=== PATIENT | female | born 1960 | race Caucasian/White ===

== ENCOUNTER 2019-09-28 12:31 | Outpatient (CLI) | payer MEDICARE, SELFPAY ==
--- NOTE | ~2019-09-28 | XR_ITS ---
XR hand LT min 3V DATE: 09/28/2019 13:08 INDICATION: Hand pain, generalized TECHNIQUE: 3 views COMPARISON: None FINDINGS: There is osteoarthritic change at the first carpometacarpal joint and some joint space heig ht at the triscaphe joint. No fracture, dislocation, periosteal reaction or bone destruction. IMPRESSION: Osteoarthritis at the first carpometacarpal joint and triscaphe joint Reviewed, dictated and finalized at location B. IMPRESSION: Osteoarthritis at the first carpometacarpal joint and triscaphe shaq sauceda
--- NOTE | ~2019-09-28 | XR_ITS ---
XR hand RT min 3V DATE: 09/28/2019 13:08 INDICATION: Bilateral hand pain. Hypothyroidism. TECHNIQUE: 3 views COMPARISON: None FINDINGS: Osteoarthritic changes are noted at the first carpometacarpal, triscaphe and some interphal angeal joints, most notably the distal interphalangeal joint of the second digit. No fracture, dislocation, periosteal reaction or bone destruction, chondrocalcinosis or erosive hwang e is evident. IMPRESSION: Polyarticular osteoarthritis Reviewed, dictated and finalized at location A.
== END 2019-09-28 12:32 | disposition home or self-care (01) ==
LOC: CHSIMG 12:37
PROVIDERS: PCP Internal Medicine; Visit Provider Internal Medicine
DX: M79.642 Pain in left hand (principal); M79.641 Pain in right hand; E03.9 Hypothyroidism, unspecified
CPT/HCPCS: 73130

== ENCOUNTER 2020-02-25 10:02 | Outpatient (CLI) | payer MEDICARE, SELFPAY ==
[2020-02-25 10:10] LABS: Hematocrit 40.9 % (35.0-49.0); Hemoglobin 13.8 g/dL (12.0-15.0); Mean Corpuscular HGB Conc 33.7 g/dL (32.0-36.0); Mean Corpuscular Hemoglobin 31.9 pg (27.0-31.0); Mean Corpuscular Volume 94.5 fL (78.0-102.0); Mean Platelet Volume 8.9 fl (9.2-11.8); Platelet Count Result 292 K/mm3 (150-420); Red Blood Count 4.33 M/mm3 (4.20-5.40); Red Cell Distribution Width 11.9 % (11.6-14.4); White Blood Count 7.7 K/mm3 (4.8-10.8)
[2020-02-25 10:43] LABS: Total Cells Counted 100
[2020-02-25 10:44] LABS: Band Neutrophils Percent 0 % (0-6); Basophils Absolute Manual 0.07 K/mm3 (0-0.1); Basophils Percent Manual 1 % (0-1); Eosinophils Absolute Manual 1.07 K/mm3 (0.02-0.5); Eosinophils Percent Manual 14 % (1-6); Lymphocytes Absolute Manual 2.15 K/mm3 (1.1-4.5); Lymphocytes Percent Manual 28 % (18-44); Monocytes Absolute Manual 0.61 K/mm3 (0.1-0.90); Monocytes Percent Manual 8 % (3-9); Neutrophils Absolute Manual 3.77 K/mm3 (1.7-7.2); Neutrophils Percent Manual 49 % (46-73); Platelet Estimate Adequate (Adequate)
[2020-02-25 11:12] LABS: Alanine Aminotransferase 27 U/L (14-59); Albumin Level 3.6 g/dL (3.4-5.0); Alkaline Phosphatase 59 U/L (46-116); Anion Gap 11.7 mmol/L (7-16); Aspartate Amino Transferase 29 U/L (15-37); Bilirubin,Total 0.5 mg/dL (0.00-1.00); Blood Urea Nitrogen 15 mg/dL (7-18); Calcium 8.5 mg/dL (8.5-10.1); Carbon Dioxide 27 mmol/L (21-32); Chloride 102 mmol/L (98-108); Estimated Glomerular Filt Rate > 60; Glucose 90 mg/dL (70-99); Osmolality Calculated 284 mOsm/kg (285-295); Potassium 3.7 mmol/L (3.5-5.1); Sodium 137 mmol/L (136-145); Total Protein 6.6 g/dL (6.4-8.2)
== END 2020-02-25 10:03 | disposition home or self-care (01) ==
LOC: CHSLAB 10:03
PROVIDERS: PCP Internal Medicine; Visit Provider Internal Medicine
DX: Z01.818 Encounter for other preprocedural examination (principal)
CPT/HCPCS: 36415; 80053; 85025

== ENCOUNTER 2020-04-08 15:39 | Outpatient (CLI) | payer MEDICARE, SELFPAY ==
--- NOTE | ~2020-04-08 | US_ITS ---
US breast LT complete DATE: 04/08/2020 16:09 INDICATION: Recent breast reduction surgery. Erythema and warmth of left breast. Patient is on antibi otics. TECHNIQUE: High-resolution ultrasound of the complete left breast COMPARISON: None FINDINGS: No suspicious mass or shadowing is evident. No abscess or abnormal fluid collection is dete cted. IMPRESSION: Negative examination; no abscess or abnormal fluid collection is evident BI-RADS Category 1: Negative Reviewed, dictated and finalized at Location A. Reviewed, dictated and finalized at location A. IMPRESSION: Negative examination; no abscess or abnormal fluid collection is ev ident BI-RADS Category 1: Negative
[2020-04-08 21:19] LABS: Hematocrit 38.1 % (35.0-49.0); Hemoglobin 12.2 g/dL (12.0-15.0); Mean Corpuscular Hemoglobin 30.6 pg (27.0-31.0); Mean Corpuscular Volume 95.5 fL (78.0-102.0); Mean Platelet Volume 8.9 fl (9.2-11.8); Platelet Count Result 288 K/mm3 (150-420); Red Blood Count 3.99 M/mm3 (4.20-5.40); Red Cell Distribution Width 12.2 % (11.6-14.4); White Blood Count 7.4 K/mm3 (4.8-10.8)
[2020-04-08 22:11] LABS: Alanine Aminotransferase 27 U/L (14-59); Albumin Level 3.4 g/dL (3.4-5.0); Alkaline Phosphatase 98 U/L (46-116); Anion Gap 9 mmol/L (8-16); Aspartate Amino Transferase 21 U/L (15-37); Bilirubin,Total 0.2 mg/dL (0.00-1.00); Blood Urea Nitrogen 12 mg/dL (7-18); Carbon Dioxide 25 mmol/L (21-32); Chloride 107 mmol/L (98-108); Estimated Glomerular Filt Rate > 60; Glucose 82 mg/dL (70-99); Osmolality Calculated 290 mOsm/kg (285-295); Potassium 3.7 mmol/L (3.5-5.1); Sodium 141 mmol/L (136-145); Total Protein 6.8 g/dL (6.4-8.2)
[2020-04-08 22:12] LABS: CRP < 0.5 mg/dL (0.0-0.9)
[2020-04-08 22:14] LABS: Calcium 8.7 mg/dL (8.5-10.1)
[2020-04-08 22:15] LABS: Band Neutrophils Percent 0 % (0-6); Neutrophils Absolute Manual 4.44 K/mm3 (1.7-7.2); Neutrophils Percent Manual 60 % (46-73); Total Cells Counted 100
[2020-04-08 22:16] LABS: Atypical Lymphocytes Present; Basophils Percent Manual 0 % (0-1); Eosinophils Absolute Manual 0.22 K/mm3 (0.02-0.5); Eosinophils Percent Manual 3 % (1-6); Lymphocytes Absolute Manual 2.22 K/mm3 (1.1-4.5); Lymphocytes Percent Manual 30 % (18-44); Monocytes Absolute Manual 0.51 K/mm3 (0.1-0.90); Monocytes Percent Manual 7 % (3-9); Platelet Estimate Adequate (Adequate)
== END 2020-04-08 15:40 | disposition home or self-care (01) ==
PROVIDERS: PCP Internal Medicine; Visit Provider Internal Medicine
DX: N61.0 Mastitis without abscess (principal); Z98.890 Other specified postprocedural states
CPT/HCPCS: 36415; 76641; 80053; 85025; 86140

== ENCOUNTER 2020-08-29 12:13 | Outpatient (CLI) | payer MEDICARE, SELFPAY ==
[2020-08-29 12:35] LABS: Basophils Absolute Auto 0.08 K/mm3 (0.00-0.10); Basophils Percent Auto 1.1 % (0.0-1.0); Eosinophils Absolute Auto 0.32 K/mm3 (0.02-0.50); Eosinophils Percent Auto 4.4 % (1.0-6.0); Hematocrit 39.1 % (35.0-49.0); Hemoglobin 12.9 g/dL (12.0-15.0); Immature Granulocyte Absolute 0.06 K/mm3 (0.00-0.00); Immature Granulocyte Percent A 0.8 % (0.0-0.0); Lymphocytes Absolute Auto 1.83 K/mm3 (1.10-4.50); Lymphocytes Percent Auto 25.2 % (18.0-42.0); Mean Corpuscular Hemoglobin 31.7 pg (27.0-31.0); Mean Corpuscular Volume 96.1 fL (78.0-102.0); Mean Platelet Volume 8.9 fl (9.2-11.8); Monocytes Absolute Auto 0.44 K/mm3 (0.10-0.90); Monocytes Percent Auto 6.1 % (2.0-11.0); Neutrophils Absolute Auto 4.5 K/mm3 (1.7-7.2); Neutrophils Percent Auto 62.4 % (50.0-70.0); Platelet Count Result 341 K/mm3 (150-420); Red Blood Count 4.07 M/mm3 (4.20-5.40); White Blood Count 7.3 K/mm3 (4.8-10.8)
[2020-08-29 12:46] LABS: INR 0.9; Partial Thromboplastin Time 28.3 SEC (23.90-30.70); Prothrombin Time 9.6 Seconds (9.50-12.10)
[2020-08-29 13:00] LABS: Alanine Aminotransferase 28 U/L (14-59); Albumin Level 3.5 g/dL (3.4-5.0); Alkaline Phosphatase 71 U/L (46-116); Anion Gap 6 mmol/L (8-16); Aspartate Amino Transferase 19 U/L (15-37); Bilirubin,Total 0.2 mg/dL (0.00-1.00); Blood Urea Nitrogen 14 mg/dL (7-18); Calcium 8.8 mg/dL (8.5-10.1); Carbon Dioxide 31 mmol/L (21-32); Chloride 103 mmol/L (98-108); Estimated Glomerular Filt Rate > 60; Free T3 2.46 pg/mL (2.18-3.98); Free T4 Free Thyroxine 0.83 ng/dL (0.76-1.46); Glucose 98 mg/dL (70-99); Osmolality Calculated 290 mOsm/kg (285-295); Sodium 140 mmol/L (136-145); Thyroid Stimulating Hormone 1.35 uIU/mL (0.36-3.74); Total Protein 7.1 g/dL (6.4-8.2)
[2020-08-29 13:05] LABS: CRP < 0.2 mg/dL (0.0-0.9)
[2020-08-29 23:24] LABS: SARS-CoV-2 RNA PCR Negative
== END 2020-08-29 12:14 | disposition home or self-care (01) ==
LOC: CHSLAB 12:17
PROVIDERS: PCP Internal Medicine; Visit Provider Internal Medicine
DX: R53.83 Other fatigue (principal); T14.8XXA Other injury of unspecified body region, initial encounter; E03.9 Hypothyroidism, unspecified; Z20.822 Contact with and (suspected) exposure to COVID-19
CPT/HCPCS: 36415; 80053; 84439; 84443; 84481; 85025; 85610; 85730; 86140; 86769; C9803; U0003; U0005

== ENCOUNTER 2021-01-07 09:24 | Outpatient (CLI) | payer MEDICARE, SELFPAY ==
--- NOTE | 2021-01-07 10:05 | PC.NURSE ---
Patient here for dressing change to left breast. Patient tolerated fair. Denies any questions at discharge. Patient left ambulatory.
== END 2021-01-07 09:25 | disposition home or self-care (01) ==
LOC: CHSLAB 09:26 → CHSTREATRM 09:28
PROVIDERS: PCP Internal Medicine; Visit Provider Internal Medicine
DX: N61.1 Abscess of the breast and nipple (principal)
CPT/HCPCS: 99211; G0463

== ENCOUNTER 2021-01-08 10:14 | Outpatient (CLI) | payer MEDICARE, SELFPAY ==
--- NOTE | 2021-01-08 10:50 | PC.NURSE ---
Patient here for dressing change to left breast. Patient tolerated dressing change well. Patient denies any questions about procedure at discharge, left ambulatory.
== END 2021-01-08 10:15 | disposition home or self-care (01) ==
LOC: CHSLAB 10:17 → CHSTREATRM 10:20
PROVIDERS: PCP Internal Medicine; Visit Provider Internal Medicine
DX: N61.1 Abscess of the breast and nipple (principal)
CPT/HCPCS: 99211; G0463

== ENCOUNTER 2021-01-16 12:09 | Outpatient (CLI) | payer MEDICARE, SELFPAY ==
--- NOTE | ~2021-01-16 | XR_ITS ---
EXAMINATION: XR_CERV2-3V_CR EXAM DATE: 01/16/2021 12:51 INDICATION: Neck pain. TECHNIQUE: Cervical spine frontal, lateral, lateral swimmers, and open-mouth odontoid projections. There is no prior study for comparison. FINDINGS: There is mild to moderate disc disease C5-C7, mild at C4-5. The vertebral body and disc he ights are otherwise well maintained. The vertebral bodies are aligned in the AP dimension. The odonto id process is intact. The lateral masses of C1 line up with C2. Prevertebral soft tissue and pre-den s space are within normal limits. Evidence of mild mid cervical uncovertebral joint disease. Mild to moderate cervical facet arthropathy. IMPRESSION: Mild to moderate cervical spondylosis Reviewed, dictated and finalized at location A.
--- NOTE | ~2021-01-16 | XR_ITS ---
EXAMINATION: XR thoracic spine 3V EXAM DATE: 01/16/2021 12:52 INDICATION: Mid back pain. TECHNIQUE: Frontal and lateral projections of the thoracic spine as well as lateral swimmers projecti on of the upper thoracic spine for interpretation. There is no prior study for comparison. FINDINGS: Large bridging endplate osteophytes at T9-10, small at mid thoracic levels. Mild to modera te mid thoracic disc disease. Mild thoracolumbar curvature. There are no acute fractures identified. There are no osteoblastic or osteolytic lesions identified. Paraspinal soft tissue is unremarkable. P robably mild diffuse thoracic facet arthropathy. IMPRESSION: Mild to moderate mid thoracic disc disease. Reviewed, dictated and finalized at location A.
== END 2021-01-16 12:10 | disposition home or self-care (01) ==
LOC: CHSIMG 12:11
PROVIDERS: PCP Internal Medicine; Visit Provider Internal Medicine
DX: M54.2 Cervicalgia (principal); M54.9 Dorsalgia, unspecified
CPT/HCPCS: 72040; 72072

== ENCOUNTER 2021-01-26 09:19 | Outpatient (RCR) | payer MEDICARE, SELFPAY ==
--- NOTE | 2021-01-16 10:30 | PC.NURSE ---
Here for dressing change
--- NOTE | 2021-01-16 10:45 | PC.NURSE ---
discharge to home ambulatory, no questions voiced, to see doctor today and surgeon tomorrow
--- NOTE | 2021-01-23 11:55 | PC.NURSE ---
Presents for dressing change
--- NOTE | 2021-01-23 12:07 | PC.NURSE ---
dressing change completed and ambulatory upon discharge to home
== END 2021-04-10 23:59 | disposition home or self-care (01) ==
LOC: CHSTREATRM 09:19
PROVIDERS: PCP Internal Medicine; Visit Provider Internal Medicine
DX: N61.1 Abscess of the breast and nipple (principal)
CPT/HCPCS: 99211; G0463

== ENCOUNTER 2022-04-16 12:04 | Outpatient (CLI) | payer MEDICARE, SELFPAY ==
[2022-04-16 12:23] LABS: Basophils Absolute Auto 0.07 K/mm3 (0.00-0.10); Basophils Percent Auto 0.9 % (0.0-1.0); Eosinophils Absolute Auto 0.15 K/mm3 (0.02-0.50); Eosinophils Percent Auto 1.8 % (1.0-6.0); Hematocrit 38.3 % (35.0-49.0); Hemoglobin 12.8 g/dL (12.0-15.0); Immature Granulocyte Absolute 0.04 K/mm3 (0.00-0.00); Immature Granulocyte Percent A 0.5 % (0.0-0.0); Lymphocytes Absolute Auto 2.34 K/mm3 (1.10-4.50); Lymphocytes Percent Auto 28.8 % (18.0-42.0); Mean Corpuscular HGB Conc 33.4 g/dL (32.0-36.0); Mean Corpuscular Hemoglobin 31.1 pg (27.0-31.0); Mean Corpuscular Volume 93.2 fL (78.0-102.0); Mean Platelet Volume 9.4 fl (9.2-11.8); Monocytes Absolute Auto 0.52 K/mm3 (0.10-0.90); Monocytes Percent Auto 6.4 % (2.0-11.0); Neutrophils Percent Auto 61.6 % (50.0-70.0); Platelet Count Result 331 K/mm3 (150-420); Red Blood Count 4.11 M/mm3 (4.20-5.40); Red Cell Distribution Width 12.1 % (11.6-14.4); White Blood Count 8.1 K/mm3 (4.8-10.8)
[2022-04-16 12:59] LABS: Alanine Aminotransferase 25 U/L (14-59); Albumin Level 3.4 g/dL (3.4-5.0); Alkaline Phosphatase 84 U/L (46-116); Amylase 61 U/L (25-115); Anion Gap 8 mmol/L (8-16); Aspartate Amino Transferase 23 U/L (15-37); Bilirubin,Total 0.3 mg/dL (0.00-1.00); Blood Urea Nitrogen 8 mg/dL (7-18); CRP 5.1 mg/dL (0.0-0.9); Calcium 8.9 mg/dL (8.5-10.1); Carbon Dioxide 28 mmol/L (21-32); Chloride 103 mmol/L (98-108); Estimated Glomerular Filt Rate > 60; Free T4 Free Thyroxine 1.15 ng/dL (0.76-1.46); Glucose 99 mg/dL (70-99); Lipase 82 U/L (73-393); Osmolality Calculated 286 mOsm/kg (285-295); Sodium 139 mmol/L (136-145); Thyroid Stimulating Hormone 0.83 uIU/mL (0.36-3.74); Total Protein 7.1 g/dL (6.4-8.2)
[2022-04-19 09:31] LABS: Testosterone Total 10 ng/dL (2-45)
[2022-04-19 13:28] LABS: FSH 27.5 mIU/mL (***); LH 22.2 mIU/mL (***)
== END 2022-04-16 12:05 | disposition home or self-care (01) ==
LOC: CHSLAB 12:07
PROVIDERS: PCP Internal Medicine; Visit Provider Nurse Practitioner Family
DX: E03.9 Hypothyroidism, unspecified (principal); R10.9 Unspecified abdominal pain; R31.9 Hematuria, unspecified; L65.9 Nonscarring hair loss, unspecified
CPT/HCPCS: 36415; 80053; 82150; 82672; 83001; 83002; 83690; 84403; 84439; 84443; 85025; 86140

== ENCOUNTER 2022-04-24 10:02 | Outpatient (CLI) | payer MEDICARE, SELFPAY ==
--- NOTE | ~2022-04-24 | CT_ITS ---
EXAMINATION: CT abdomen pelvis w con DATE: 04/24/2022 10:42 INDICATION: LLQ/MID ABD PAIN . No personal history of cancer. TECHNIQUE: Computed tomography (CT) of the abdomen and pelvis was performed with 100 mL Omnipaque-350 intravenous contrast. Automated exposure control and iterative reconstruction technique were employe d. The dose-length product was 440.65 mGy-cm. COMPARISON: None. FINDINGS: Lower thorax: 4 mm left lower lobe pulmonary nodule, no additional follow-up recommended. Liver: Normal. Biliary/Gallbladder: Gallbladder is normal. No bile duct dilation. Pancreas: No mass or duct dilation. Punctate calcification in the pancreatic tail possibly from prior bout of pancreatitis or representing a vascular calcification. Spleen: Normal. Adrenals: 2.5 cm right adrenal mass. Kidneys: No mass, stone, or hydronephrosis. GI tract: Distal esophageal and gastric wall edema as can be seen with esophagitis/gastritis. No smal l or large bowel dilation. Normal appendix. Diverticulosis. Focal wall thickening and pericolonic inf lammatory change in 2 separate sections of the colon involving the distal descending colon and the mi d sigmoid colon. Mesentery/Peritoneum: No ascites, mass, or free air. Retroperitoneum: No mass. Atherosclerotic abdominal aortic and/or arterial calcifications. Pelvis: Uterus surgically absent. Bladder wall thickening. Soft Tissues: Soft tissues and body wall unremarkable. Bones: No acute osseous finding. IMPRESSION: Two sites segmental of pericolonic inflammatory change, may represent multifocal diverticulitis. Cons ider follow-up imaging or colonoscopy following the acute phase to ensure resolution. Possible cystit is, correlate with urinalysis. Indeterminate 2.5 cm right adrenal mass, recommend adrenal CT for furt her evaluation. Results reported telephonically to Dr. Garcia by Dr. Abarca at 3:55 PM on 04/24/2022. Reviewed, dictated and finalized at location K. IMPRESSION: Two sites segmental of pericolonic inflammatory change, may represent multifoca l diverticulitis. Consider follow-up imaging or colonoscopy following the acute phase to ensure resolution. Possible cystitis, correlate with urinalysis. Inde terminate 2.5 cm right adrenal mass, recommend adrenal CT for further evaluatio n. Results reported telephonically to Dr. Garcia by Dr. Abarca at 3:55 PM on 2021.
== END 2022-04-24 10:03 | disposition home or self-care (01) ==
LOC: CHSIMG 10:04
PROVIDERS: PCP Internal Medicine; Visit Provider Internal Medicine
DX: R10.9 Unspecified abdominal pain (principal)
CPT/HCPCS: 74177; Q9967

== ENCOUNTER 2022-04-25 10:02 | Outpatient (CLI) | payer MEDICARE, SELFPAY ==
--- NOTE | 2022-04-25 11:00 | NEURO_ITS ---
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 # Normal needle exam. Nerve Conduction Studies Anti Sensory Summary Table Stim Site NR Peak (ms) P-T Amp (?V) Site1 Site2 Delta-P (ms) Dist (cm) Joey (m/s) Left Median Anti Sensory (2-3nd Digit) Wrist 3.9 96.6 Wrist 2-3nd Digit 3.9 14.0 36 Wrist 4.0 59.3 Wrist 2-3nd Digit 3.9 14.0 36 Right Median Anti Sensory (2-3nd Digit) Wrist 4.1 47.4 Wrist 2-3nd Digit 4.1 14.0 34 Wrist 4.2 47.2 Wrist 2-3nd Digit 4.1 14.0 34 Left Radial Anti Sensory (Base 1st Digit) Wrist 2.6 29.0 Wrist Base 1st Digit 2.6 0.0 Right Radial Anti Sensory (Base 1st Digit) Wrist 2.6 23.6 Wrist Base 1st Digit 2.6 0.0 Left Ulnar Anti Sensory (5th Digit) Wrist 3.0 54.4 Wrist 5th Digit 3.0 14.0 47 Right Ulnar Anti Sensory (5th Digit) Wrist 3.3 78.2 Wrist 5th Digit 3.3 14.0 42 Motor Summary Table Stim Site NR Onset (ms) O-P Amp (mV) Site1 Site2 Delta-0 (ms) Dist (cm) Joey (m/s) Left Median Motor (Abd Poll Brev) Wrist 3.6 3.9 Elbow Wrist 4.8 27.0 56 Elbow 8.4 3.4 Right Median Motor (Abd Poll Brev) Wrist 3.7 5.5 Elbow Wrist 4.5 25.0 56 Elbow 8.2 4.7 Left Ulnar Motor (Abd Dig Minimi) Wrist 3.3 6.5 A Elbow Wrist 5.1 27.0 53 A Elbow 8.4 6.3 Right Ulnar Motor (Abd Dig Minimi) Wrist 4.0 4.1 A Elbow Wrist 5.3 27.0 51 A Elbow 9.3 3.5 B Elbow Wrist 3.6 19.0 53 B Elbow 7.6 3.1 F Wave Studies NR F-Lat (ms) L-R F-Lat (ms) Left Median (Mrkrs) (Abd Poll Brev) 30.73 3.86 Right Median (Mrkrs) (Abd Poll Brev) 26.88 3.86 Left Ulnar (Mrkrs) (Abd Dig Min) 28.54 0.64 Right Ulnar (Mrkrs) (Abd Dig Min) 27.89 0.64 EMG Side Muscle Nerve Root Ins Act Fibs Amp Dur Recrt Comment Right 1stDorInt Ulnar C8-T1 Nml Nml Nml Nml Nml Right Ext Indicis Radial (Post Int) C7-8 Nml Nml Nml Nml Nml Right Ext Digitorum Radial (Post Int) C7-8 Nml Nml Nml Nml Nml Right BrachioRad Radial C5-6 Nml Nml Nml Nml Nml Right PronatorTeres Median C6-7 Nml Nml Nml Nml Nml Right Abd Poll Brev Median C8-T1 Nml Nml Nml Nml Nml Left 1stDorInt Ulnar C8-T1 Nml Nml Nml Nml Nml Left Ext Indicis Radial (Post Int) C7-8 Nml Nml Nml Nml Nml Left Ext Digitorum Radial (Post Int) C7-8 Nml Nml Nml Nml Nml Left BrachioRad Radial C5-6 Nml Nml Nml Nml Nml Left PronatorTeres Median C6-7 Nml Nml Nml Nml Nml Left Abd Poll Brev Median C8-T1 Nml Nml Nml Nml Nml MTDD
== END 2022-04-25 10:03 | disposition home or self-care (01) ==
LOC: ANHNEURO 10:04
PROVIDERS: PCP Internal Medicine; Visit Provider Internal Medicine
DX: R20.2 Paresthesia of skin (principal); G56.21 Lesion of ulnar nerve, right upper limb
CPT/HCPCS: 95886; 95911

== ENCOUNTER → 2022-04-25 11:27 | Outpatient (CLI) | payer MEDICARE, SELFPAY ==
--- NOTE | ~2022-04-25 | US_ITS ---
EXAMINATION: US pelvic complete DATE: 04/25/2022 12:35 INDICATION: Left pelvic pain Comparison:Left pelvic pain TECHNIQUE: Multiple transabdominal and endovaginal sonographic images of the pelvis performed. FINDINGS: The uterus is not visualized. There is a right adnexal cyst measuring 1.9 x 1.8 x 1.7 cm. There is no free fluid in the pelvis. Th ere are no abnormal masses seen on either side. IMPRESSION: 1. Right adnexal cyst measuring 1.9 cm, possibly ovarian. Reviewed, dictated and finalized at location B.
--- NOTE | ~2022-04-25 | US_ITS ---
US abdomen complete EXAMINATION: US Abdomen Complete INDICATION: Abdomen pain PROCEDURE: Realtime High Resolution abdomen ultrasound. COMPARISON: No prior studies for comparison FINDINGS: Gallbladder within normal limits. No gallstones, pericholecystic fluid, gallbladder wall t hickening or biliary dilatation. Common bile duct measures 4 mm. Liver echotexture within normal limits without focal mass. Adjacent to the liver margin there is a hy poechoic mass measuring 2.3 x 2.1 x 2 cm, likely corresponding to adrenal mass seen on CT examination dated 04/24/2022. Pancreas within normal limits. Pancreatic tail is obscured by bowel gas. Spleen is unremarkeable. Renal echotexture is within normal limits bilaterally without hydronephrosis, conto ur deforming mass or renal stone. Right kidney measures 10.3 cm. Left kidney measures 10.1 cm. Visualized aspects of the aorta and IVC are within normal limits. Portal vein is patent. No sonograph ic Loya's sign indicated by the technologist. IMPRESSION: 1: Hypoechoic mass adjacent to the liver margin measuring 2.3 cm, likely adrenal mass seen on CT exam ination. Reviewed, dictated and finalized at location B. IMPRESSION: 1: Hypoechoic mass adjacent to the liver margin measuring 2.3 cm, likely adrena l mass seen on CT examination.
== END ==
PROVIDERS: PCP Internal Medicine; Visit Provider Internal Medicine
DX: R10.9 Unspecified abdominal pain (principal); R93.89 Abnormal findings on diagnostic imaging of other specified body structures
CPT/HCPCS: 76700; 76856

== ENCOUNTER 2022-05-02 12:14 | Outpatient (CLI) | payer MEDICARE, SELFPAY ==
[2022-05-02 12:27] LABS: Basophils Absolute Auto 0.06 K/mm3 (0.00-0.10); Basophils Percent Auto 0.6 % (0.0-1.0); Eosinophils Absolute Auto 0.18 K/mm3 (0.02-0.50); Eosinophils Percent Auto 1.7 % (1.0-6.0); Hematocrit 40.4 % (35.0-49.0); Hemoglobin 13.4 g/dL (12.0-15.0); Immature Granulocyte Absolute 0.04 K/mm3 (0.00-0.00); Immature Granulocyte Percent A 0.4 % (0.0-0.0); Lymphocytes Absolute Auto 2.05 K/mm3 (1.10-4.50); Lymphocytes Percent Auto 19.2 % (18.0-42.0); Mean Corpuscular HGB Conc 33.2 g/dL (32.0-36.0); Mean Corpuscular Hemoglobin 30.9 pg (27.0-31.0); Mean Corpuscular Volume 93.3 fL (78.0-102.0); Mean Platelet Volume 8.8 fl (9.2-11.8); Monocytes Absolute Auto 0.84 K/mm3 (0.10-0.90); Monocytes Percent Auto 7.9 % (2.0-11.0); Neutrophils Absolute Auto 7.5 K/mm3 (1.7-7.2); Neutrophils Percent Auto 70.2 % (50.0-70.0); Platelet Count Result 372 K/mm3 (150-420); Red Blood Count 4.33 M/mm3 (4.20-5.40); Red Cell Distribution Width 11.9 % (11.6-14.4); White Blood Count 10.7 K/mm3 (4.8-10.8)
[2022-05-05 04:25] LABS: CA-125 10 U/mL (<35)
[2022-05-06 07:32] LABS: Carcinoembryonic Antigen 0.9 ng/mL (0.0-2.4)
== END 2022-05-02 12:15 | disposition home or self-care (01) ==
LOC: CHSLAB 12:16
PROVIDERS: PCP Internal Medicine; Visit Provider Internal Medicine
DX: N83.201 Unspecified ovarian cyst, right side (principal); E27.9 Disorder of adrenal gland, unspecified; R19.04 Left lower quadrant abdominal swelling, mass and lump; Z09 Encounter for follow-up examination after completed treatment for conditions other than malignant neoplasm
CPT/HCPCS: 36415; 82378; 85025; 86304

== ENCOUNTER 2022-05-10 10:27 | Outpatient (CLI) | payer MEDICARE, SELFPAY ==
--- NOTE | ~2022-05-10 | CT_ITS ---
EXAMINATION:CT diagnostic chest w con DATE: 05/10/2022 10:59 INDICATION: Pulmonary nodule. Right adrenal mass. Shortness of breath and cough. TECHNIQUE: Computed tomography (CT) of the chest was performed with 75 mL Omnipaque 350 intravenous c ontrast. Automated exposure control and iterative reconstruction technique were employed. The dose-le ngth product (DLP) was 182.75 mGy-cm. COMPARISON: CT abdomen and pelvis 04/24/2022 FINDINGS: The lungs demonstrate minimal atelectasis. There is a 4 mm nodule in left lower lobe. No pl eural effusion. The heart size is normal. No pericardial effusion. There is a 2.5 cm mass in right ad renal gland measuring soft tissue attenuation. There is mild thoracic spondylosis. IMPRESSION: 1. 4 mm pulmonary nodule, likely benign. 2. 2.5 cm right adrenal mass. In the absence of known malignancy, this finding is likely an adenoma. Reviewed, dictated and finalized at location A.
== END 2022-05-10 10:28 | disposition home or self-care (01) ==
LOC: CHSIMG 10:28
PROVIDERS: PCP Internal Medicine; Visit Provider Internal Medicine
DX: R91.1 Solitary pulmonary nodule (principal); E27.9 Disorder of adrenal gland, unspecified
CPT/HCPCS: 71260; Q9967

== ENCOUNTER 2022-08-02 08:18 | Outpatient (CLI) | payer MEDICARE, MEDICAID, SELFPAY ==
--- NOTE | ~2022-08-02 | MMUS_ITS ---
EXAMINATION: MM diagnostic wen BI w amina, US breast LT complete HISTORY: History of left breast asked cyst from breast reduction surgery. TECHNIQUE: Additional 3-D tomosynthesis images of the breasts were performed and synthetic 2-D images were generated. CAD analysis was submitted and interpreted. High resolution complete left breast ult rasound was performed. COMPARISON: None BREAST PARENCHYMAL COMPOSITION: Breast composed of scattered areas of fibroglandular density FINDINGS: MAMMOGRAPHIC FINDINGS: There are no suspicious calcifications, architectural distortion or clustered calcifications in eithe r breast to suggest malignancy. ULTRASOUND: Complete US of all 4 quadrants of the left breast and retroareolar region was reviewed. At 8:00, 8 cm from the nipple there is an oval isoechoic mass measuring 9 mm which may represent a focal lipoma or fat necrosis. No corresponding mammographic finding is seen, likely benign. At 8:00, 8 cm from the n ipple there is an oval hypoechoic 5 mm mass with parallel orientation, no significant posterior featu res and no internal vascularity. The margins are circumscribed. No corresponding mammographic abnorma lity is seen. IMPRESSION: 1. Probable benign left breast masses seen on ultrasound without mammographic correlate. 2. Recommend 6 month follow-up Limited left breast ultrasound. BI-RADS category 3, probably benign findings. Reviewed, dictated and finalized at location A. [employer]ESS [employer]ER IMPRESSION: 1. Probable benign left breast masses seen on ultrasound without mammographic c orrelate. 2. Recommend 6 month follow-up Limited left breast ultrasound. BI-RADS category 3, probably benign findings.
== END 2022-08-02 08:19 | disposition home or self-care (01) ==
LOC: CHSIMG 08:19
PROVIDERS: PCP Internal Medicine; Visit Provider Internal Medicine
DX: N64.4 Mastodynia (principal)
CPT/HCPCS: 76641; 77062; 77066; G0279

== ENCOUNTER 2024-06-15 09:55 | Outpatient (CLI) | payer OTHER, SELFPAY ==
--- NOTE | ~2024-06-15 | XR_ITS ---
XR chest 2V Ordering provider: Warren Garcia MD History: 64 years Female with . Congestion X 6 weeks, RT side chest pain, SOB, Cough . Comparison: None. FINDINGS: MEDIASTINUM: The cardiac silhouette is not enlarged. LUNGS: No infiltrates, effusions or pneumothorax. OTHER: No free air under the diaphragm. Degenerative changes of the spine. IMPRESSION: No acute cardiopulmonary pathology. Reviewed, dictated and finalized at location A. UCE CUTTER
--- NOTE | ~2024-06-15 | XR_ITS ---
3 VIEWS PARANASAL SINUSES Ordering provider: Warren Garcia MD History: . Persistent sinusitis X 6 weeks, Hx thyroid tumors . Comparison: None. FINDINGS: BONES: No acute fracture as visualized. PARANASAL SINUSES: Well aerated. No air fluid levels. SOFT TISSUES: Normal. IMPRESSION: NO EVIDENCE OF SINUS DISEASE. CONSIDER FOLLOW UP CT PARANASAL SINUSES IF THERE IS CONTINUED CONCERN. Reviewed, dictated and finalized at location A. E CAPTAIN
[2024-06-15 10:18] LABS: Hematocrit 40.6 % (35.0-49.0); Mean Corpuscular HGB Conc 34.5 g/dL (32-36); Mean Corpuscular Hemoglobin 31.4 pg (27.0-31.0); Mean Platelet Volume 8.7 fl (9.2-11.8); Platelet Count Result 376 K/mm3 (150-420); Red Blood Count 4.46 M/mm3 (4.20-5.40); Red Cell Distribution Width 12.5 % (11.6-14.4); White Blood Count 11.8 K/mm3 (4.8-10.8)
[2024-06-15 10:30] LABS: Add Urine Microscopic? YES; Appearance Urine Clear (Clear); Bilirubin Urine Negative (Negative); Blood Urine 2+ (Negative); Color Urine Light Yellow (Yellow); Glucose Urine UA Negative (Negative); Ketones Urine Negative (Negative); Leukocyte Esterase Ur Negative (Negative); Nitrate Urine Negative (Negative); Protein Urine Negative (Negative); Specific Grav Ur 1.025 (1.010-1.020); Urobilinogen Urine 0.2 mg/dL (0.2-1.0); pH Urine 5.5 (5.0-8.0)
[2024-06-15 10:57] LABS: Bacteria Urine 2+ /hpf; Squamous Epithelial Cell Urine Few /hpf (Few); WBC Urine 0-3 /hpf (0-3)
[2024-06-15 11:15] LABS: Alanine Aminotransferase 28 U/L (14-59); Albumin Level 3.2 g/dL (3.4-5.0); Alkaline Phosphatase 103 U/L (46-116); Anion Gap 9 mmol/L (4-12); Aspartate Amino Transferase 15 U/L (15-37); Bilirubin,Total 0.2 mg/dL (0.00-1.00); Blood Urea Nitrogen 19 mg/dL (7-18); Calcium 8.9 mg/dL (8.5-10.1); Carbon Dioxide 26 mmol/L (21-32); Chloride 104 mmol/L (98-108); Estimated Glomerular Filt Rate > 60; Glucose 88 mg/dL (70-99); Osmolality Calculated 289 mOsm/kg (285-295); Potassium 4.2 mmol/L (3.5-5.1); Sodium 139 mmol/L (136-145); Total Protein 6.5 g/dL (6.4-8.2)
[2024-06-15 11:18] LABS: CRP < 0.5 mg/dL (0.0-0.9)
[2024-06-15 11:21] LABS: Erythrocyte Sedimentation Rate 16 mm/hr (0-20)
[2024-06-16 08:38] LABS: Immunoglobulin A 207 mg/dL (70-320); Immunoglobulin G 708 mg/dL (600-1540); Immunoglobulin M 94 mg/dL (50-300)
[2024-06-19 22:23] LABS: Legionella pneumophila Ag Ur NOT DETECTED
== END 2024-06-15 09:56 | disposition home or self-care (01) ==
LOC: CHSLAB 10:00
PROVIDERS: PCP Internal Medicine; Visit Provider Internal Medicine
DX: J32.9 Chronic sinusitis, unspecified (principal); R19.7 Diarrhea, unspecified; R05.9 Cough, unspecified
CPT/HCPCS: 36415; 70220; 71046; 80053; 81001; 82784; 85027; 85652; 86140; 86738; 87449; 87486

== ENCOUNTER 2024-06-16 11:21 | Outpatient (CLI) | payer OTHER, SELFPAY ==
--- NOTE | 2024-06-17 13:58 | WPDHOLTEREM ---
Holter/Event Monitor Holter/Event Monitor Date of procedure: 06/16/24 Holter/Event Procedure: 24 Hr Holter Monitor Indications: Palpitations Conclusion: 1. 24 hour holter monitor on 06/16/24. 2. Underlying rhythm is sinus rhythm. HR range 49-129 bpm; average HR 72 bpm. HR at 49 bpm was at 09:51. 3. There are 27 premature supraventricular complexes. No supraventricular tachycardia. 4. There are 386 premature ventricular complexes and 2 ventricular couplets. No ventricular tachycardia. 5. No significant pauses greater than 2 seconds. 6. No symptoms available for correlation.
[2024-06-17 14:14] LABS: Toxigenic C. Diff NEGATIVE (NEGATIVE)
[2024-06-19 11:19] LABS: Trichrome Ova and Parasites STATUS: FINAL
== END 2024-06-16 11:22 | disposition home or self-care (01) ==
LOC: CHSCARD 11:24
PROVIDERS: PCP Internal Medicine; Visit Provider Internal Medicine
DX: J32.9 Chronic sinusitis, unspecified (principal); R19.7 Diarrhea, unspecified; R05.9 Cough, unspecified; R00.2 Palpitations
CPT/HCPCS: 87045; 87177; 87209; 87427; 87449; 87493; 93005; 93225; 93226

== ENCOUNTER 2025-04-20 12:58 | Outpatient (CLI) | payer MEDICARE, MEDICAID, SELFPAY ==
--- OUTSIDE RECORDS SUMMARY | 2025-04-20 13:10 | XMS_ITS | Clinical Summary ---
Author Organization [address] Address [facility] [place] [address] Care Team Providers Care Answering Service Telephone Operator Name Role Phone Warren Garcia MD Primary Care Provider [phone] Warren Garcia MD Unavailable [phone] Allergies Active Allergy Reactions Criticality Noted Date Comments Cefaclor Other (See comments) Low 06/05/2018 Tendons rupture Ciprofloxacin Other (See comments) Low 06/11/2019 Levofloxacin Other (See comments) Low 06/11/2019 Other Other (See comments) Low 06/05/2018 Fluoroquinolones- tendon ruptures Penicillins Unknown,Rash,Urticaria Medium 03/05/2018 No issues with Keflex Penicillins Hives Medium 04/14/2025 Quinolones Other (See comments) Low 03/05/2018 unknown unknown unknown unknown Medications levothyroxine (SYNTHROID, LEVOTHROID) 25 mcg tablet Take 50 mcg by mouth snuff blender before breakfast Active estradiol (VIVELLE-DOT) 0.0375 mg/[address] 1 patch on the skin 2 (two) times a week. Active FIRST-PROGESTER ONE VGS 50 VAGLIndications :cream Insert into the vagina. Active ALPRAZolam (XANAX) 1 mg tablet Take 1 mg by mouth 2 (two) times a day. Active multivitamin capsule Take 1 capsule by mouth daily. Active b complex vitamins tablet Take 1 tablet by mouth daily. Active cholecalciferol (VITAMIN D-3) 5,000 unit tablet Active ascorbic acid (VITAMIN C) 1,000 mg tabletIndicatio ns:2000 units Take 1,000 mg by mouth daily. Active biotin 10,000 mcg capsule Take by mouth. Act nancy nitrofurantoin (MACRODANTIN) 100 mg capsule Take 100 mg by mouth 4 (four) times a day. Active zolpidem (AMBIEN) 10 mg tablet zolpidem 10 mg tablet Active triamcinolone (KENALOG) 0.5 % cream triamcinolone acetonide 0.5 % topical cream Active tamsulosin (FLOMAX) 0.4 mg extended release capsule tamsulosin 0.4 mg capsule Active acyclovir (ZOVIRAX) 800 mg tablet acyclovir 800 mg tablet Active azithromycin (ZITHROMAX) 250 mg tablet azithromycin 250 mg tablet Active cephalexin (KEFLEX) 500 mg capsule cephalexin 500 mg capsule Active FLUoxetine (PROzac) 10 mg tablet/capsule fluoxetine 10 mg capsule Active HYDROmorphone (DILAUDID) 2 mg tablet hydromorphone 2 mg tablet Active metoprolol (LOPRESSOR) 50 mg tablet metoprolol tartrate 50 mg tablet Active nitrofurantoin monohydrate (MACROBID) 100 mg capsule nitrofurantoin monohydrate/macroc rystals 100 mg capsule Active ofloxacin (FLOXIN) 0.3 % otic solution ofloxacin 0.3 % ear drops INSTILL 10 DROPS (1.5 MG) INTO AFFECTED EAR(S) BY OTIC ROUTE 2 TIMES PER DAY Active phentermine (ADIPEX-P) 37.5 mg tablet daily Active furosemide (LASIX) 20 mg tablet 05/30/20 21 Active spironolactone (ALDACTONE) 25 mg tablet 05/06/20 21 Active nystatin 100,000 unit/mL suspension 05/07/20 22 Active Active Problems Problem Noted Date Diagnosed Date Thyroid nodule 06/12/2019 Generalized anxiety disorder 10/18/2017 Encounters Date Type Department Care Team Description 04/15/2025 Telephone [facility] Medicine Gastroenterology [address] [facility] 12[address] [place] [address] [place] [id number] Myranda Baca CNA Referral status 04/14/2025 9:54 AM CDT - 04/14/2025 11:59 PM CDT Hospital Encounter [facility] ([facility] [address] [place] [address] Discharge Disposition: Discharge to home or self care 04/14/2025 9:54 AM CDT - 04/14/2025 11:59 PM CDT Hospital Encounter [facility] ([facility]) [address] [place] [address] Thyroid nodule; Malignant neoplasm of thyroid gland (HCC) Discharge Disposition: Discharge to home or self care 04/13/2025 Telephone [facility] Medicine Surgery [address] [facility] [address] [place] [address] Pako Mckinnon MD Patient issue/concern from Last 3 Months Surgical History Surgery Date Site/Laterality Comments ABLATION heart x2 HYSTERECTOMY MANDIBLE SURGERY tumor bone x 2 ABDOMINOPLASTY Medical History Medical History Date Comments Heart disease Arthritis Lupus Family History Medical History Relation Name Comments No Known Problems Mother Relation Name Status Comments Mother Social History Tobacco Use Types Packs/Day Years Used Date Smoking Tobacco: Never Smokeless Tobacco: Never Tobacco Cessation:Counseling Given: Not Answered Comments No Sex and Gender Information Value Date Recorded Sex Assigned at Not on file Legal Sex Female 10:01 AM CDT Gender Identity Not on file Sexual Orientation Not on file Obstetrics History Last Filed Vital Signs Vital Sign Reading Time Taken Comments Blood Pressure 137/94 07/03/2022 11:23 AM DENTAL DIRECTOR Pulse 76 07/03/2022 11:23 AM DENTAL DIRECTOR Temperature - - Respiratory Rate - - Oxygen Saturation 98% 07/03/2022 11:23 AM DENTAL DIRECTOR Inhaled Oxygen Concentration - - Weight 81.4 kg (179 lb 8 oz) 04/14/2025 10:28 AM CDT Height 162.6 cm (5' 4) 07/03/2022 11:23 AM DENTAL DIRECTOR Body Mass Index 30.81 07/03/2022 11:23 AM DENTAL DIRECTOR Plan of Treatment Health Maintenance Due Date Last Done Comments Colon Cancer Screening-Colonoscopy 1962 Depression Screening 1962 Hepatitis C Screening 1962 DTaP/Tdap/Td Vaccine (1 - Tdap) 1973 Hepatitis B Screening 1980 Regular Well Visit/Exam 18-64 1980 Zoster Vaccine (1 of 2) 2012 Covid-19 Vaccine (2 - 2024- season) 2025 06/27/2021 Influenza Vaccine (#1) 2025 Breast Cancer Screening-Mammogram 04/23/2025 04/23/2024, 04/23/2024, 03/19/2023, Additional history exists Pneumococcal vaccine <65 Aged Out No longer eligible based on patient's age to complete this topic Procedures Procedure Name Priority Date/Time Associated Diagnosis Comments PET/CT FDG SKULL TO THIGH Schedule Routine, Read Routine (OP Routine) 04/14/2025 12:39 PM CDT Thyroid nodule Malignant neoplasm of thyroid gland (HCC) from Last 3 Months Results * PET/CT FDG SKULL TO THIGH (04/14/2025 12:39 PM CDT) Anatomical Region Laterality Modality N/A Positron Emissio n Tomography (PET) 04/14/2025 3:01 PM CDT Impressions 04/14/2025 3:22 PM CDT 1. No evidence of hypermetabolic malignancy 2. Queried right thyroid nodule mass demonstrates background uptake and is likely benign. 3. Right sided adrenal adenoma. Dictated by: Celso Mullins M.D. The radiology attending physician has personally reviewed this study, and had reviewed and/or edited this written report and agrees with it. Electronically signed by: Sherry Allen MD, Ph.D Narrative 04/14/2025 3:22 PM CDT EXAMINATION: TUMOR FDG-PET/CT IMAGING DATE OF STUDY: 04/14/2025 SCANNER: [facility] N PET Vision (NV1). This is a high-resolution scanner, which can result in higher SUVs (and even detection of previously unrecognized small lesions) compared to older scanners. RADIOPHARMACEUTICAL: 17.3 mCi F-18 Fluorodeoxyglucose (FDG) i.v. Injection site: LAC HISTORY: 64 year old with no history provided other than thyroid nodule. The study is requested for initial staging. Initial treatment strategy. TECHNIQUE: The patient's fasting blood glucose level, measured by glucometer before injection of FDG, was 79 mg/dL. After intravenous administration of FDG, noncontrast CT images were obtained for attenuation correction and for fusion with emission PET images to allow for anatomical localization of PET findings. Emission PET images were then obtained. The study was interpreted on the Triductor workstation. The mean liver SUV (reported for quality assurance coordinator purposes) is 2.8. The total scanned area was skull vertex to thighs. Images of the body were obtained starting 79 minutes after injection of tracer. All reported SUVs are maximum SUVs, unless otherwise specified. COMPARISON: 05/21/2023 DESCRIPTORS OF LESION FDG AVIDITY: Minimal: <= blood pool Mild: > blood pool and <= liver Moderate: > liver and <= 2x SUVmax liver Moderate to marked: >2x SUVmax liver and <= 3x SUVmax liver Marked: > 3x SUVmax liver FINDINGS: Atrophic left thyroid gland. Nodular right thyroid gland without suspicious uptake. Scattered subcentimeter right axillary nodes with mild uptake, for example a 9 mm right axillary node with mild uptake (SUV 4.6, image 113). Below the diaphragm, there are multiple mildly FDG avid prominent retroperitoneal, periportal, and left greater than right external iliac lymph nodes. An index node is a 1.2 cm short axis left external iliac node (SUV 4.5, image 243). These are likely reactive. There is a 2.0 x 2.6 cm right adrenal nodule with moderate to marked uptake (SUV 5.4, image 162). Additional CT findings: There is wall thickening of the sigmoid colon with adjacent stranding, notably around the left inferior peritoneal reflection (image 235). There is increased intraluminal FDG avidity associated with the sigmoid colon. Evaluation for an underlying mass limited secondary to decompressed colon. Procedure Note Sherry Fernández MD PhD - 04/14/2025 EXAMINATION: TUMOR FDG-PET/CT IMAGING DATE OF STUDY: 04/14/2025 SCANNER: [facility] [employer] (NV1). This is a high-resolution scanner, which can result in higher SUVs (and even detection of previously unrecognized small lesions) compared to older scanners. RADIOPHARMACEUTICAL: 17.3 mCi F-18 Fluorodeoxyglucose (FDG) i.v. Injection site: LAC HISTORY: 64 year old with no history provided other than thyroid nodule. The study is requested for initial staging. Initial treatment strategy. TECHNIQUE: The patient's fasting blood glucose level, measured by glucometer before injection of FDG, was 79 mg/dL. After intravenous administration of FDG, noncontrast CT images were obtained for attenuation correction and for fusion with emission PET images to allow for anatomical localization of PET findings. Emission PET images were then obtained. The study was interpreted on the Triductor workstation. The mean liver SUV (reported for quality assurance coordinator purposes) is 2.8. The total scanned area was skull vertex to thighs. Images of the body were obtained starting 79 minutes after injection of tracer. All reported SUVs are maximum SUVs, unless otherwise specified. COMPARISON: 05/21/2023 DESCRIPTORS OF LESION FDG AVIDITY: Minimal: <= blood pool Mild: > blood pool and <= liver Moderate: > liver and <= 2x SUVmax liver Moderate to marked: >2x SUVmax liver and <= 3x SUVmax liver Marked: > 3x SUVmax liver FINDINGS: Atrophic left thyroid gland. Nodular right thyroid gland without suspicious uptake. Scattered subcentimeter right axillary nodes with mild uptake, for example a 9 mm right axillary node with mild uptake (SUV 4.6, image 113). Below the diaphragm, there are multiple mildly FDG avid prominent retroperitoneal, periportal, and left greater than right external iliac lymph nodes. An index node is a 1.2 cm short axis left external iliac node (SUV 4.5, image 243). These are likely reactive. There is a 2.0 x 2.6 cm right adrenal nodule with moderate to marked uptake (SUV 5.4, image 162). Additional CT findings: There is wall thickening of the sigmoid colon with adjacent stranding, notably around the left inferior peritoneal reflection (image 235). There is increased intraluminal FDG avidity associated with the sigmoid colon. Evaluation for an underlying mass limited secondary to decompressed colon. IMPRESSION: 1. No evidence of hypermetabolic malignancy 2. Queried right thyroid nodule mass demonstrates background uptake and is likely benign. 3. Right sided adrenal adenoma. Dictated by: Celso Mullins M.D. The radiology attending physician has personally reviewed this study, and had reviewed and/or edited this written report and agrees with it. Electronically signed by: Sherry Allen MD, Ph.D Warren Garcia MD IMG PET PROCEDURES Final Result from Last 3 Months Insurance MEDICARE [facility] Care Teams Answering Service Telephone Operator Relationship Specialty Start Date End Date Warren Garcia MD [address] [place] [address] PCP - General Internal Medicine 04/08/25 Warren Garcia MD [address] [place] [address] Internal Medicine 04/08/25
--- OUTSIDE RECORDS SUMMARY | 2025-04-20 13:10 | XMS_ITS | Encounter Summary ---
Author Organization [facility] Address [address] [place] [address] Phone Care Team Providers Care Legal Secretary Name Role Phone Warren Garcia MD Primary Care Provider [phone] Warren Garcia MD Unavailable [phone] Reason for Visit * Reason Onset Date Comments Patient issue/concern 04/13/2025 Encounter Details Date Type Department Care Team (Late st Contact Info) Description 04/13/2025 Telephone [facility] Medicine Surgery [address] [facility] [address] [place] [address] Pako Mckinnon MD [address] [place] [id number] Patient issue/concern Social History Tobacco Use Types Packs/Day Years Used Date Smoking Tobacco: Never Smokeless Tobacco: Never Comments No Sex and Gender Information Value Date Recorded Sex Assigned at Not on file Legal Sex Female 10:01 AM CDT Gender Identity Not on file Sexual Orientation Not on file documented as of this encounter Miscellaneous Notes * Telephone Encounter - Willis Balderas - 04/13/2025 9:21 AM CDT Patient Query: Was an attempt to transfer to the assigned clinical staff or backline? Yes. Reason for call?: Kiarra called in to schedule the appt. 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 She is having a Pet tomorrow. She would like to see Dr Mckinnon. Who is the caller: Kiarra. What is the best number for them to contact for a call back: [phone] Last office visit: Visit date not found Date of Surgery: No surgery found documented in this encounter Plan of Treatment Not on file documented as of this encounter Visit Diagnoses Not on filedocumented in this encounter Care Teams Legal Secretary Relationship Specialty Start Date End Date Warren Garcia MD [address] [place] [address] PCP - General Internal Medicine 04/08/25 Warren Garcia MD [address] [place] [address] Internal Medicine 04/08/25 documented as of this encounter
[2025-04-20 20:18] LABS: Thyroid Stimulating Hormone 1.070 uIU/mL (0.465-4.680)
== END 2025-04-20 12:59 | disposition home or self-care (01) ==
LOC: ANHGOSHLAB 13:00
PROVIDERS: PCP Internal Medicine; Visit Provider Otolaryngology
DX: E03.9 Hypothyroidism, unspecified (principal)
CPT/HCPCS: 36415; 84443